=== PATIENT | male | born 2000 | race Caucasian/White ===

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

== ENCOUNTER 2019-09-05 18:31 | Emergency (ER) | payer SELFPAY ==
[2019-09-05 18:37] VITALS: BP 145/72; PULSE 83; RESP 16; TEMP 36.8; O2SAT 97
--- NOTE | 2019-09-05 18:45 | W.ED.GENAD ---
Discharge Plan Disposition Patient Disposition: HOME Condition: Stable Discharge Details Chief Complaint: RashLesion Clinical Impression: Urticarial rash Primary Care Provider: Hayder Pratt ED Provider: Kilo Camacho Home Meds and New Rx's Prescriptions: New prednisone 20 mg tablet 40 mg PO DAILY 5 Days Qty: 10 RF: 0 No Action albuterol sulfate [ProAir HFA] 8.5 GM HFA aerosol inhaler 2 puff Inhalation Q4H PRN Qty: 1 RF: 3 (DME) inhalational spacing device [Aerochamber Plus Flow-Vu,S Msk] 1 EACH spacer 1 ea Miscellaneous Q4H PRN Qty: 1 RF: 0 Discharge Instructions Instructions: Urticaria (ED) Additional Instructions: May continue Benadryl 25 to 50 mg by mouth at bedtime to reduce itching. May use a cool bath to reduce itching. Take prednisone as prescribed. Your next dose will be tomorrow. Return to the emergency department for any acute concerns. Medical Decision Making 19-year-old male presents from home with pruritic rash over weeks time. No known inciting agents including a lack of new exposures to perfumes, soaps, detergents, clothes, food. States he has had allergic eruptions in the past. No wheezing or shortness of breath. No change to voice. He is otherwise been well. He has an excoriated urticarial rash. I will place him on a burst of prednisone. He understands homecare as well as indications to return for reevaluation. Stable for discharge at this time. HPI General Mode of arrival: ambulatory. Date/Time Provider Initiated Documentation: 09/05/19 18:33. Limitations to Documentation: no limitations. Information obtained by: patient. History of Present Illness 19 year old M presents to the emergency department with the chief complaint of Diffuse itching rash for 2 weeks, described as moderate, Quality is described as constant, and is localized to the chest, back and abdomen. Patient started experiencing this day(s) and it has been intermittent. No relieving factors improve symptom(s), No exacerbating factors reported . Patient notes other (No discharge from the rash, no difficulty swallowing, no change to breathing. No known inciting agents.); denies fever/chills. Patient did receive the following treatments prior to arrival, other (Benadryl) Related Data Home Medications Medication Instructions Recorded Confirmed albuterol sulfate [ProAir HFA] 2 puff INHALATION Q4H PRN #1 02/20/16 09/05/19 inhaler inhalational spacing device #1 ea 02/20/16 [Aerochamber Plus Flow-Vu,S Msk] prednisone 40 mg PO DAILY 5 Days #10 tab 09/05/19 Previous Rx's Medication Instructions Recorded prednisone 40 mg PO DAILY 5 Days #10 tab 09/05/19 Allergies Allergy/AdvReac Type Severity Reaction Status Date / Time seasonal allergies Allergy Mild Uncoded 09/05/19 18:39 General Stated Complaint: RashLesion CRISTIAN: 4 Review of Systems Narrative: 6 systems reviewed and otherwise negative [facility] Medical History Allergic rhinitis Asthma Chronic abdominal pain Hematuria twin sibling Surgical History Endoscopy upper Family History Mother Diabetes Father Mental disorder ? depression Celiac disease Sister Celiac disease Social History Smoking/Tobacco Use Status: Current every day Drug use: Never Do you feel safe in your relationship?: Yes Exam Narrative Exam Narrative: GEN: awake, alert, oriented 3. Pleasant, well groomed, interactive. HEAD: Normocephalic, atraumatic ENT: Mucous membranes moist, oropharynx unremarkable, External ear exam unremarkable EYES: PERRL, EOMI NECK: Full ROM, no CHELE, no menigismus CHEST/RESP: Nontender, clear to auscultation bilateral, no wheeze/rhonchi/rales CARDIOVASCULAR: RRR, no murmur, rub adan. 2+ Rad pulse bilateral EXT: Full ROM, no edema Skin: There is a excoriated, slightly erythematous and raised rash present throughout the thorax abdomen and back. Neuro: Grossly normal neurologic exam, conversant, interactive. Psych: Speech fluent, thoughts congruent, affect normal Course Vital Signs Vital signs: Vital Signs Temperature 36.8 C 09/05/19 18:37 Pulse 83 09/05/19 18:37 Respiratory Rate 16 09/05/19 18:37 Blood Pressure 145/72 H 09/05/19 18:37 Pulse Oximetry 97 09/05/19 18:37 Temperature 36.8 C 09/05/19 18:37 Temperature Source Skin 09/05/19 18:37 Pulse 83 09/05/19 18:37 Respiratory Rate 16 12/25/19 18:37 Respiratory Effort 09/05/19 18:41 Blood Pressure 145/72 H 09/05/19 18:37 Blood Pressure Position Sitting 09/05/19 18:37 Pulse Oximetry 97 09/05/19 18:37 Oxygen Delivery Method Room Air 09/05/19 18:37 Oxygen Flow Rate 0 09/05/19 18:37
[2019-09-05] MEDS: predniSONE 20 MG TAB 60 MG PO (18:50)
== END 2019-09-05 18:55 | disposition home or self-care (01) ==
LOC: ER 18:50
PROVIDERS: Emergency Provider Emergency Medicine
DX: L50.9 Urticaria, unspecified (principal)
CPT/HCPCS: 99283; J7512

== ENCOUNTER 2019-09-18 03:06 | Emergency (ER) | payer SELFPAY ==
[2019-09-18 03:10] VITALS: BP 166/94; PULSE 98; RESP 20; TEMP 37; O2SAT 96
--- NOTE | 2019-09-18 03:13 | ED.GENADUL_ITS ---
Discharge Plan Disposition Patient Disposition: HOME Condition: Stable Discharge Details Chief Complaint: RashLesion Clinical Impression: Rash Primary Care Provider: None,None ED Provider: Edwin Ryan Home Meds and New Rx's Prescriptions: New prednisone 20 mg tablet 60 mg PO DAILY 5 Days Qty: 15 RF: 0 Continued albuterol sulfate [ProAir HFA] 8.5 GM HFA aerosol inhaler 2 puff Inhalation Q4H PRN Qty: 1 RF: 3 No Action (DME) inhalational spacing device [Aerochamber Plus Flow-Vu,S Msk] 1 EACH spacer 1 ea Miscellaneous Q4H PRN Qty: 1 RF: 0 Discharge Instructions Additional Instructions: I placed you on a follow up list to try and get established with a primary care provider continue to take benadryl as needed, 25mg every 6 hours. Do not drink alcohol or drive if you take this medicine if you have high fevers, difficulty breathing or severe abdominal pain return to the emergency department Medical Decision Making 19 yo male comes in with itcching rash on torso and legs. He was tx'd for urticaria with oral steroids and finished the steroids on the 1st per pt. 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 Has multiple areas of various size mild erythema that is not warm to touch and blanches on legs and torso that seems consistent with urticaria. No gi or respiratory symptoms and no mucous membrane involvement. 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 Also return precautions given Differential Diagnosis Differential Diagnosis: hives, urticaria HPI General Mode of arrival: ambulatory . Date/Time Provider Initiated Documentation: 09/18/19 03:08 . Limitations to Documentation: no limitations . Information obtained by: patient . History of Present Illness 19 year old M presents to the emergency department with the chief complaint of rash, described as moderate, Patient started experiencing this day(s) (2) and it has been constant. No relieving factors improve symptom(s), No exacerbating factors reported . Related Data Home Medications Medication Instructions Recorded Confirmed albuterol sulfate [ProAir HFA] 2 puff INHALATION Q4H PRN #1 02/20/16 09/18/19 inhaler inhalational spacing device #1 ea 02/20/16 [Aerochamber Plus Flow-Kenan,S Msk] prednisone 60 mg PO DAILY 5 Days #15 tab 09/18/19 Previous Rx's Medication Instructions Recorded prednisone 60 mg PO DAILY 5 Days #15 tab 09/18/19 Allergies Allergy/AdvReac Type Severity Reaction Status Date / Time seasonal allergies Allergy Mild Uncoded 09/05/19 18:39 General Stated Complaint: RashLesion CRISTIAN: 5 Review of Systems All systems reviewed & are unremarkable except as noted in HPI and below Constitutional Constitutional: Denies chills, Denies fever(s) and Denies weakness Eyes Eyes: Denies loss of vision ENT Ears, Nose, Mouth, and Throat: Denies change in voice Cardiovascular Cardiovascular: Denies chest pain and Denies dyspnea Respiratory Respiratory: Denies cough and Denies dyspnea Gastrointestinal Gastrointestinal: Denies abdominal pain, Denies nausea and Denies vomiting Genitourinary Genitourinary: Denies dysuria Musculoskeletal Musculoskeletal: Denies joint swelling Neurologic Neurologic: Denies loss of vision and Denies weakness Psychiatric Psychiatric: Denies depression Endocrine Endocrine: Denies cold intolerance and Denies heat intolerance Allergic/Immunologic Allergic/Immunologic: Denies urticaria PFSH Surgical History Endoscopy upper Social History Smoking/Tobacco Use Status: Current every day Alcohol Intake: current Alcohol Intake frequency: a few times a month Drug use: Never Do you feel safe at home: Yes Do you feel safe in your relationship?: Yes Exam Const General: no acute distress Orientation: alert HENMT Head: normal to inspection Ears: external ears normal General nose exam: external nose normal Mouth: moist mucous membranes Eyes General: appearance normal, both eyes and all related structures Neck Neck: normal visual inspection Resp Effort & Inspection: normal respiratory effort and able to speak in complete sentences Cardio Rate: regular rate Skin General skin exam: elasticity normal Neuro General: alert and oriented x3 Extrem General: normal to inspection Psych Mental Status: mental status grossly normal Course Vital Signs Vital signs: Vital Signs Temperature 37.0 C 09/18/19 03:10 Pulse 98 H 09/18/19 03:10 Respiratory Rate 09/18/19 03:10 Blood Pressure 166/94 H 09/18/19 03:10 Pulse Oximetry 96 09/18/19 03:10 Temperature 37.0 C 09/18/19 03:10 Temperature Source Skin 09/18/19 03:10 Pulse 98 H 09/18/19 03:10 Respiratory Rate 20 09/18/19 03:10 Blood Pressure 166/94 H 09/18/19 03:10 Blood Pressure Position Sitting 09/18/19 03:10 Pulse Oximetry 96 09/18/19 03:10 Oxygen Delivery Method Room Air 09/18/19 03:10 Oxygen Flow Rate 0 09/18/19 03:10 Pain Level 0 09/18/19 03:10 Comment 09/18/19 03:10
--- NOTE | 2019-09-18 07:09 | NUR.NOTE ---
Addendum entered and electronically signed by Jessica Ayers 01/23/20 11:51: PCP referral faxed to [facility] on 09/19/2019. Original Note: Nursing Note: Referral to establish care for PCP and follow up given to Care Management. Monet Caballero.
== END 2019-09-18 03:15 | disposition home or self-care (01) ==
PROVIDERS: Emergency Provider Emergency Medicine
DX: R21 Rash and other nonspecific skin eruption (principal)
CPT/HCPCS: 99283

== ENCOUNTER 2020-08-20 02:12 | Outpatient (CLI) | payer SELFPAY ==
[2020-08-21 21:51] LABS: COVID-19 RT-PCR UVMMC Result Negative (Negative)
== END 2020-08-20 02:32 ==
PROVIDERS: Visit Provider Pediatrics
DX: Z20.828 Contact with and (suspected) exposure to other viral communicable diseases (principal)
CPT/HCPCS: U0003